=== PATIENT | male | born 1970 | race Caucasian/White ===

== ENCOUNTER 2025-08-26 08:21 | Emergency (ER) | payer BC, SELFPAY ==
--- NOTE | 2025-08-26 | XR_ITS ---
EXAMINATION: MR head/brain wo/w con ORDERING PROVIDER: Faby Hughes MD HISTORY: CT with hypodensity, right sided numbness TECHNIQUE: Multiplanar multisequence magnetic resonance images were obtained of the brain with and without contrast. COMPARISON: 08/26/25 CT Head. FINDINGS: No restricted diffusion or abnormal susceptibility. No mass identified, including in the area of concern right frontal lobe. There are multiple T2/FLAIR hyperintensities scattered throughout the periventricular and subcortical white matter. Ventricles are normal in size. Flow voids are intact. Globes unremarkable. Partially visualized paranasal sinuses and mastoid air cells are clear. There are punctate T2 hyper/FLAIR hyperintensities, one within the right basal ganglia and one about the right temporal tip without enhancement, which could represent small perivascular spaces or sequelae of lacunar infarcts. IMPRESSION: 1. No acute intracranial hemorrhage, mass effect, or midline shift. 2. No restricted diffusion to suggest acute ischemia. 3. No mass identified in the area of right frontal lobe hypodensity as seen on recent CT. 4. Multiple T2/FLAIR hyperintensities throughout the periventricular and subcortical white matter, greater than expected for age. These could represent sequelae of prior infectious process, atypical demyelinating disease, chronic headaches, or other small vessel microvascular changes.
[2025-08-26 08:36] VITALS: BP 179/104; PULSE 88; RESP 18; TEMP 36.8; O2SAT 95; BMI 31.5
--- NOTE | 2025-08-26 08:43 | XR_ITS ---
EXAMINATION: CT head/brain wo con ORDERING PROVIDER: Rocael LI), PEDIGREE TRACER HISTORY: headache TECHNIQUE: CT scanner was used in the volumetric, helical non-contrast acquisition of the head with 2-D and 3-D reformats created on a separate workstation and submitted for interpretation. Institutional dose reducing protocols were utilized. RADIATION DOSE: DLP 1127 mGy-cm COMPARISON: None. FINDINGS: BRAIN: No acute intracranial hemorrhage, mass effect, or midline shift. Punctate right basal ganglia Virchow-Nabeel space on space versus old lacunar infarct. Within the anterior lateral aspect of the right frontal lobe, series 2 image 18, series 4 image 20, series 6 image 35, there is a 1.3 cm mildly irregular hypodensity. PHILLIP-WHITE DIFFERENTIATION: Preserved. EXTRA-AXIAL SPACES: No abnormal collection. SULCI: Normal. VENTRICLES: Normal. BASAL CISTERNS: Normal. VESSELS: No hyperdense vessel sign. DURAL VENOUS SINUSES: Symmetric attenuation. POSTERIOR FOSSA: Normal. MASTOID AIR CELLS: Clear. PARANASAL SINUSES: Clear. ORBITS: Normal. BONES: Normal. SCALP: Subcentimeter calcific/ossific density lateral to the right mastoids may be sequela of remote trauma or soft tissue calcification. IMPRESSION: 1.3 cm hypodensity in the right frontal lobe, nonspecific. This could be artifact or related to underlying lesion. Further investigation with MR brain with and without contrast is needed.
--- NOTE | 2025-08-26 08:43 | EKG_ITS ---
[facility] Test Date: 2025-08-26 Pat Name: MACO HADLEY Department: Room: - Gender: Male Report Specialist: : [id number] Requested By: Rocael Sylvester (SOLIS) Order Number: [id number] Reading MD: Rocael Sylvester (PERIANESTHESIA RN) Measurements Intervals Commodore Rate: 84 P: 21 MO: 137 QRS: -10 QRSD: 89 T: 10 QT: 355 QTc: 421 Interpretive Statements SINUS RHYTHM NONSPECIFIC T-WAVE ABNORMALITY No previous ECG available for comparison /store/S0/[id number]/[id number].pdf
--- NOTE | 2025-08-26 08:44 | PD.EDRME ---
Rapid Medical Screening Exam RME Arrival date/time: 08/26/25 08:21 54-year-old male presents to the Emergency Department today for complaints of headache and dizziness as well as right-sided numbness ongoing since Sunday Chief Complaint: General Adult/Misc Complain Vital signs: Vital Signs Temperature 98.2 F 08/26/25 08:36 Pulse Rate 88 08/26/25 08:36 Respiratory Rate 18 08/26/25 08:36 Blood Pressure 179/104 H 08/26/25 08:36 Pulse Oximetry (%) 95 08/26/25 08:36 Oxygen Delivery Method Room Air 08/26/25 08:36 Vital signs reviewed by provider: Yes Exam: On exam well-appearing does not appear ill or toxic Clinical Impression: Labs, imaging, EKG obtained
[2025-08-26 09:23] LABS: Basophils # (Auto) 0.1 Thou/mm3 (0.0-0.2); Basophils % (Auto) 1 % (0-2.5); Eosinophils # (Auto) 0.2 Thou/mm3 (0.0-0.5); Eosinophils % (Auto) 3 % (0-10); Hematocrit 46.0 % (41.0-53.0); Hemoglobin 16.2 g/dL (13.5-16.0); Immature Granulocytes Auto 0.01 Thou/mm3 (0.00-0.00); Lymphocytes # (Auto) 2.1 Thou/mm3 (1.0-4.8); Lymphocytes % (Auto) 32 % (10-50); Mean Corpuscular HGB Conc 35.2 g/dl (31.0-37.0); Mean Corpuscular Hemoglobin 31.0 pg (25.0-35.0); Mean Corpuscular Volume 88 fL (80-100); Monocytes # (Auto) 0.5 Thou/mm3 (0.0-0.8); Monocytes % (Auto) 7 % (0-12); Neutrophils # (Auto) 3.8 Thou/mm3 (1.8-7.7); Neutrophils % (Auto) 57 % (37-80); Nucleated Red Blood Cell # 0.00 Thou/mm3 (0.00-0.00); Nucleated Red Blood Cell % 0 /100 WBC (0); Platelet Count 229 Thou/mm3 (140-440); RDW Standard Deviation 40.8 fL (35.1-43.9); Red Blood Count 5.22 Miln/mm3 (4.50-5.90); White Blood Count 6.6 Thou/mm3 (3.8-10.6)
[2025-08-26 09:40] LABS: INR 1.0 (0.9-1.3); Partial Thromboplastin Time 28.9 Seconds (22.0-36.0); Prothrombin Time 10.9 Seconds (9.0-12.2)
[2025-08-26 09:46] LABS: Alanine Aminotransferase 38 U/L (10-49); Albumin, Serum 4.7 gm/dL (3.5-5.0); Albumin/Globulin Ratio 1.5 (1.2-2.2); Alkaline Phosphatase 74 U/L (46-116); Anion Gap 11 (7-16); Aspartate Amino Transferase 29 U/L (0-34); BUN/Creatinine Ratio 11 Ratio (12-20); Bilirubin,Total 0.7 mg/dL (0.3-1.2); Blood Urea Nitrogen 12 mg/dL (9-23); Calcium 9.9 mg/dL (8.3-10.6); Calcium (Corrected) 9.9 mg/dL (8.5-10.1); Carbon Dioxide 23.5 mMol/L (20.0-31.0); Chloride 106 mMol/L (98-107); Creatinine (Component) 1.1 mg/dL (0.6-1.3); Estimated Creatinine Clearance 88.8 mL/min (>60); Globulin 3.2 gm/dL (2.3-3.5); Glucose 129 mg/dL (74-106); Lipase 30 U/L (12-53); Magnesium 2.0 mg/dL (1.6-2.6); Osmolality,Calculated 281 (275-295); Potassium 3.7 mMol/L (3.4-5.1); Sodium 140 mMol/L (136-145); Total Protein 7.9 gm/dL (5.7-8.2); Troponin I 0.025 ng/mL (0.0-0.045); eGFR > 60 See Note
[2025-08-26 09:57] VITALS: BP 178/117; PULSE 77; RESP 16; TEMP 36.9; O2SAT 95
[2025-08-26 09:57] LABS: B-Type Natriuretic Peptide < 20 pg/mL (0-100)
--- NOTE | 2025-08-26 09:57 | EDNOTE_ITS ---
ED General RME/HPI General Chief complaint: General Adult/Misc Complain Stated complaint: GENERAL R SIDED PAIN, AND NUMBNESS X3 DAYS Arrival date/time: 08/26/25 08:21 Limitations: no limitations RME / HPI RME / HPI narrative: 08/26/25 08:21 54-year-old male presents to the Emergency Department today for complaints of headache and dizziness as well as right-sided numbness ongoing since Sunday DR. FRANK VICTORIA ED EVALUATION 54 year old male with history of hypertension (not currently on medications) presents to the ED for evaluation of headache, right-sided numbness today. States while working Sunday had an episode of dizziness, room spinning sensation occurring on/off. States he continued to work and had two episodes of vomiting. States when he arrived home he took a nap and had no change in symptoms. Accompanied by numbness to the right hand and right foot. Patient additionally complains of pain to his right lower abdomen beginning Sunday. States the numbness sensation has not improved since onset 5 days ago, prompting ED visit. Denies any unilateral weakness, loss of movement, or history of similar symptoms. Additionally reports the right arm feels swollen compared to the left though there is no obvious swelling. Exam: On exam well-appearing does not appear ill or toxic Impression: Labs, imaging, EKG obtained Related Data Previous Rx's ?Medication ?Instructions ?Recorded lisinopril 5 mg tablet 5 mg PO QDAY #30 tabs Allergies Allergy/AdvReac Type Severity Reaction Status Date / Time No Known Allergies Allergy Verified 08/26/25 08:23 Review of Systems Review of Systems Systems Reviewed: All systems reviewed, normal except as documented ED Exam General Limitations: Present no limitations General appearance: Present alert and in no apparent distress Head Head exam: Present atraumatic Eye Eye exam: Present normal appearance, PERRL and EOMI ENT ENT exam: Present normal exam, normal oropharynx and mucous membranes moist Neck Neck exam: Present normal inspection, full ROM and trachea midline Chest Chest inspection: Present normal inspection and symmetric chest wall rise Respiratory Respiratory exam: Present normal lung sounds bilaterally Cardiovascular Cardiovascular exam: Present regular rate, normal rhythm and normal heart sounds Abdominal Exam Abdominal exam: Present soft and normal bowel sounds Extremities Exam Extremities exam: Present full ROM and other (Mild numbness in all 5 fingers of the right hand as well as all 5 toes of the right foot, strong in all 4 extremities, sensation intact above the right hand and above the rigth foot, no dyskinesia) Back Exam Back exam: Present normal inspection and full ROM Neurological Exam Neurological exam: Present alert, oriented X3, CN II-XII intact and other (intact finger to nose, no visual abnormalities, Mild numbness in all 5 fingers of the right hand as well as all 5 toes of the right foot, strong in all 4 extremities, sensation intact above the right hand and above the rigth foot, no dyskinesia) Psychiatric Psychiatric exam: Present normal affect and normal mood Skin Skin exam: Present warm, dry, intact and normal color Course Quality Measures none Orders Category Date Time Status EKG (ED ONLY) *Do not use* NOW Care 08/26/25 08:43 Completed IV [Insert IV] NOW Care 08/26/25 10:47 Completed MRI Screening NOW Care 08/26/25 10:[address] head/brain wo con Stat Exams 08/26/25 08:43 Completed EKG (ED Only) Stat Exams 08/26/25 08:43 Draft MR head/brain wo/w con Stat Exams 08/26/25 Completed US venous doppler UE RT Stat Exams 08/26/25 11:48 Completed B-Type Natriuretic Peptide Stat Lab 08/26/25 08:55 Completed CBC Stat Lab 08/26/25 08:55 Completed Comprehensive Metabolic Panel Stat Lab 08/26/25 08:55 Completed Drug Screen,Urine Stat Lab 08/26/25 09:45 Completed Lipase Stat Lab 08/26/25 08:55 Completed Magnesium Stat Lab 08/26/25 08:55 Completed Partial Thromboplastin Time Stat Lab 08/26/25 08:55 Completed Prothrombin Time with INR Stat Lab 08/26/25 08:55 Completed Troponin I Stat Lab 08/26/25 08:55 Completed Urinalysis, C/S if Indicated Stat Lab 08/26/25 09:45 Completed Lisinopril [Prinivil] Med 08/26/25 14:03 Discontinued 5 mg PO X1 ONE Midazolam Inj [Versed Inj] Med 08/26/25 11:00 Discontinued 1 mg IVP X1 ONE Vital Signs Vital signs: Vital Signs Temperature 98.2 F 08/26/25 08:36 Pulse Rate 88 08/26/25 08:36 Respiratory Rate 18 08/26/25 08:36 Blood Pressure 179/104 H 08/26/25 08:36 Pulse Oximetry (%) 95 08/26/25 08:36 Oxygen Delivery Method Room Air 08/26/25 08:36 Pulse ox is 95% on room air which is adequate. Discharge Plan Plan Patient Disposition: HOME (Self Care) Prescriptions/Referrals Prescriptions/Med Rec: New lisinopril 5 mg tablet 5 mg PO QDAY Qty: 30 0RF Referrals: Nile Bianchi MD [Primary Care Provider, Nephrology] - In 1 week Problem List Clinical Impression: Weakness, Hand numbness, Numbness and tingling of foot, Pre-syncope Patient/Caregiver Discharge Instructions Education Materials: Treating Syncope: Prevention, ED Weakness (Uncertain Caus e), ED Paraesthesias Additional Instructions: Your labs today did not show any acute hematologic or metabolic abnormality, your cardiac enzyme and EKG did not show any evidence of arrhythmia or ischemia. The CT of your brain showed a a 1.3 cm hypodensity in the right frontal lobe however your MRI did not identify any abnormalities in this area. The MRI did show multiple hyperintensities throughout the periventricular and subcortical white matter which is greater than expected age. Per the radiologist this may be from a prior infectious process or an atypical demyelinating disease or from chronic headaches or from chronic microvascular changes. It is important follow-up with your primary care doctor within the next 1 to 2 days to discuss these findings, and establish care with a neurologist to discuss this as well. Please return to the emergency room immediately for worsening symptoms or any symptoms of concern Print Language: [place] Stand Alone Forms: Roseline Award Info., Patient Portal Info Letter MDM Narrative MDM hospital course (for use when minimal MDM required): Danielle Rodney am scribing for and in the presence of Dr. Hughes. Patient is a 54-year-old male with an emergency primary concerns for numbness in his right foot as well as his right hand symptom onset approximately 5 days ago. Vital signs and exam as listed. Concern for intracranial hemorrhage, prior stroke, neuropathy, right upper extremity DVT among others. Ordered labs CT MRI brain ultrasound of the right upper extremity and EKG. Labs without any acute hematologic abnormality, no significant metabolic abnormality, no transaminitis, troponin not elevated urinalysis without evidence of infection drug screen negative. CT brain with 1.3 cm hypodensity in the right frontal lobe nonspecific. MRI brain without any acute intracranial hemorrhage mass effect or midline shift, no restricted diffusion to suggest acute ischemia, no mass identified in the area of the right frontal lobe hypodensity is seen on the recent CT. However on T2 flair patient with hyperintensity throughout the periventricular and subcortical white matter greater than expected age. Per the radiologist this could represent sequela of prior infectious process, atypical demyelinating disease, chronic headaches or small microvascular changes. Ultrasound of the right upper extremity without evidence of DVT. EKG performed today at 840 4 in the morning, interpreted by me, sinus rhythm, heart rate 84, normal intervals, nonspecific T wave changes, not a cardiac alert. On re-eval patient HD stable NAD, advised to follow up with PCP, establish care with a neurologist. Close return precautions provided. Clinical Information Provided by: patient Medical Records reviewed None (No previous records for review) Meds/Rx considered, not ordered None Labs/Rad/Tests considered, not ordered None Chronic Illness/Social Conditions which may negatively complicate care or outcome(s)-explain: None or not applicable Labs Labs: interpreted by me and see narrative above Imaging Imaging Interpretation(s): Ordering Physician: Faby Hughes MD Date of Service: 08/26/25 Procedure(s): MR head/brain wo/w con Accession Number(s): [id number] cc: Ian Mcghee MD; Faby Hughes MD; Nile Bianchi MD~ EXAMINATION: MR head/brain wo/w con ORDERING PROVIDER: Faby Hughes MD HISTORY: CT with hypodensity, right sided numbness TECHNIQUE: Multiplanar multisequence magnetic resonance images were obtained of the brain with and without contrast. COMPARISON: 08/26/25 CT Head. FINDINGS: No restricted diffusion or abnormal susceptibility. No mass identified, including in the area of concern right frontal lobe. There are multiple T2/FLAIR hyperintensities scattered throughout the periventricular and subcortical white matter. Ventricles are normal in size. Flow voids are intact. Globes unremarkable. Partially visualized paranasal sinuses and mastoid air cells are clear. There are punctate T2 hyper/FLAIR hyperintensities, one within the right basal ganglia and one about the right temporal tip without enhancement, which could represent small perivascular spaces or sequelae of lacunar infarcts. IMPRESSION: 1. No acute intracranial hemorrhage, mass effect, or midline shift. 2. No restricted diffusion to suggest acute ischemia. 3. No mass identified in the area of right frontal lobe hypodensity as seen on recent CT. 4. Multiple T2/FLAIR hyperintensities throughout the periventricular and subcortical white matter, greater than expected for age. These could represent sequelae of prior infectious process, atypical demyelinating disease, chronic headaches, or other small vessel microvascular changes. Dictated By: Ian Mcghee MD Signed By: <Electronically signed by Ian Mcghee MD in OV> 08/26/25 1317 Ordering Physician: Higinio LI)Rocael NP Date of Service: 08/26/25 Procedure(s): CT head/brain wo con Accession Number(s): [id number] cc: Higinio LI),Rocael ELY; Ian Mcghee MD; Nile Bianchi MD~ EXAMINATION: CT head/brain wo con ORDERING PROVIDER: Rocael Sylvester NP, NP HISTORY: headache TECHNIQUE: CT scanner was used in the volumetric, helical non-contrast acquisition of the head with 2-D and 3-D reformats created on a separate workstation and submitted for interpretation. Institutional dose reducing protocols were utilized. RADIATION DOSE: DLP 1127 mGy-cm COMPARISON: None. FINDINGS: BRAIN: No acute intracranial hemorrhage, mass effect, or midline shift. Punctate right basal ganglia Virchow-Nabeel space on space versus old lacunar infarct. Within the anterior lateral aspect of the right frontal lobe, series 2 image 18, series 4 image 20, series 6 image 35, there is a 1.3 cm mildly irregular hypodensity. PHILLIP-WHITE DIFFERENTIATION: Preserved. EXTRA-AXIAL SPACES: No abnormal collection. SULCI: Normal. VENTRICLES: Normal. BASAL CISTERNS: Normal. VESSELS: No hyperdense vessel sign. DURAL VENOUS SINUSES: Symmetric attenuation. POSTERIOR FOSSA: Normal. MASTOID AIR CELLS: Clear. PARANASAL SINUSES: Clear. ORBITS: Normal. BONES: Normal. SCALP: Subcentimeter calcific/ossific density lateral to the right mastoids may be sequela of remote trauma or soft tissue calcification. IMPRESSION: 1.3 cm hypodensity in the right frontal lobe, nonspecific. This could be artifact or related to underlying lesion. Further investigation with MR brain with and without contrast is needed. Dictated By: Ian Mcghee MD Signed By: <Electronically signed by Ian Mcghee MD in OV> 08/26/25 0933 Ordering Physician: Faby Hughes MD Date of Service: 08/26/25 Procedure(s): US venous doppler UE RT Accession Number(s): [id number] cc: Michele Amador MD; Faby Hughes MD; Nile Bianchi MD~ Examination: Duplex scan of the upper extremity, unilateral right Date and time of exam: August 26, 2025, 1225 hours INDICATION: Right arm pain beginning 4 days ago Technique: Duplex scan of the extremity veins using B-mode/grayscale imaging and Doppler spectral analysis and color flow Attention is directed to internal echogenicity, compression and augmentation involving these veins, color flow assessment, spectral analysis Findings: Major deep venous structures in the extremity demonstrate normal course and caliber. There is no evidence of deep vein thrombosis. Normal color flow and spectral analysis Impression: Negative for DVT.. Dictated By: Michele Amador MD Signed By: <Electronically signed by Michele Amador MD in OV> 08/26/25 1251 Medication Administration(s) Medication Administration History Discontinued Medications Lisinopril (Lisinopril 2.5 Mg Tablet) 5 mg PO X1 ONE Stop: 08/26/25 14:04 Last Admin: 08/26/25 14:36 Dose: 5 mg Documented By: LIA Midazolam HCl (Midazolam Inj 1 Mg/Ml Vial 2 Ml) 1 mg IVP X1 ONE Stop: 08/26/25 11:01 Last Admin: 08/26/25 11:32 Dose: 1 mg Documented By: MEJIA See above Diagnosis Diagnoses ruled out and/or further discussions: weakness hand numbness numbness and tingling of foot pre-syncope
[2025-08-26 10:00] LABS: Collection Type, Urine Clean Catch
[2025-08-26 10:02] LABS: Bilirubin,Urine Negative (Negative); Blood,Urine Trace (Negative); Clarity,Urine Clear (Clear/Hazy); Color,Urine Lt-Yellow (Lt Yel-Yel); Culture Indicated,Urine Not Indicated; Glucose, Urine Negative (Negative); Ketones,Urine Negative (Negative); Leukocyte Esterase,Urine Negative (Negative); Nitrite,Urine Negative (Negative); PH,Urine 6.0 (5.0-7.0); Protein,Urine Negative (Neg - Trace); RBC,Urine 4 /hpf (0-3); Specific Gravity,Urine 1.014 (1.001-1.035); Squamous Epithelial Cell,Urine < 1 /hpf (0-5); Urobilinogen,Urine Negative mg/dL (0.0-1.0); WBC,Urine 1 /hpf (0-5)
[2025-08-26 10:13] LABS: Amphetamine/Methamp Scrn,U Negative (Negative); Barbiturate Screen,Urine Negative (Negative); Benzodiazepines Screen,Urine Negative (Negative); Benzoylecgonine Screen, Ur Negative (Negative); Fentanyl Screen,Urine Negative (Negative); Opiate Screen,Urine Negative (Negative); THC Screen,Urine Negative (Negative)
[2025-08-26] MEDS: MIDAZOLAM INJ 1 MG/ML VIAL 2 ML IVP (11:32)
--- NOTE | 2025-08-26 11:48 | XR_ITS ---
Examination: Duplex scan of the upper extremity, unilateral right Date and time of exam: August 26, 2025, 1225 hours INDICATION: Right arm pain beginning 4 days ago Technique: Duplex scan of the extremity veins using B-mode/grayscale imaging and Doppler spectral analysis and color flow Attention is directed to internal echogenicity, compression and augmentation involving these veins, color flow assessment, spectral analysis Findings: Major deep venous structures in the extremity demonstrate normal course and caliber. There is no evidence of deep vein thrombosis. Normal color flow and spectral analysis Impression: Negative for DVT..
[2025-08-26 13:58] VITALS: BP 175/109; PULSE 64; RESP 19; TEMP 37; O2SAT 95
[2025-08-26 14:36] VITALS: BP 169/109; PULSE 83
[2025-08-26 16:10] VITALS: BP 149/113; PULSE 77; RESP 20; TEMP 37.2; O2SAT 95
== END 2025-08-26 16:48 | disposition home or self-care (01) ==
PROVIDERS: Nurse Practitioner Primary Care; Emergency Provider Emergency Medicine; PCP Internal Medicine
DX: M79.601 Pain in right arm (principal); R51.9 Headache, unspecified; R20.0 Anesthesia of skin; R20.2 Paresthesia of skin; R94.31 Abnormal electrocardiogram [ECG] [EKG]
CPT/HCPCS: 36415; 70450; 70553; 80053; 80307; 81001; 83690; 83735; 83880; 84484; 85025; 85610; 85730; 93005; 93971; 96374; 99284; A9577; J2250; A9270